=== PATIENT | male | born 1965 | race Caucasian/White ===

== ENCOUNTER → 2017-10-09 | Day surgery (SDC) | payer OTHER ==
[2017-10-08 11:31] VITALS: BMI 33.2
[~2017-10-09] MED LIST: Bacitracin Zinc Ointment 30 gm TUBE ONE; Dexamethasone 20 MG/5 ML VIAL ONE; Fentanyl 100 MCG/2 ML VIAL ONE; Glycopyrrolate 0.2 MG/ML 5 ML SYRINGE ONE; Lidocaine 1% PF 5 ML VIAL ONE; Lidocaine 1% w/Epinephrine 1:100K 30 ML VIAL ONE; Midazolam HCl 2 mg/2 ml Vial ONE; Ondansetron HCl/PF 4 MG/2 ML Vial ONE; Oxymetazoline HCl 0.05% ( 15 ML ) ONE; PROPOFOL 200 MG/20 ML VIAL ONE
--- NOTE | 2017-10-10 02:54 | OP ---
PREOPERATIVE DIAGNOSES: Profound septal deformity, hypertrophic inferior turbinates. POSTOPERATIVE DIAGNOSES: Profound septal deformity, hypertrophic inferior turbinates. PROCEDURE PERFORMED: 1. Septoplasty. 2. Bilateral nasal endoscopy with submucosal resection of inferior turbinates. PROCEDURE IN DETAIL: After consent was obtained, the patient was identified, brought to the operatin g room, and placed on the operating room table in the supine position. Consent was obtained, notifyi ng the patient of the possibility of additional infections, bleeding, brain injury, and eye/orbital i njury. The patient was placed on the operating room table, and general endotracheal anesthesia and intravenous access was obtained. The patient was then positioned, prepped and draped for endoscopic sinus surgery. Nasal preparation included trimming nasal vestibular hairs and spraying in topical Af rin. We then placed Afrin topical solution on nasal pledgets and strategically located them intranas ally. The perinasal mucosa was injected with 1% lidocaine with 1:100,000 epinephrine in the submucop erichondrial plane of the septum, lateral nasal wall, and anterior to the uncinate. The patient was then prepped and draped in a sterile fashion and positioned for endoscopic sinus surgery. After local anesthesia was infiltrated into the submucoperichondrial plane, a standard [place] incisi on was made with a #15 blade down to the level of the septal cartilage. The caudal elevator was used to elevate the mucoperichondrium from the underlying cartilage. We then proceeded beyond the bony c artilaginous junction and elevated the bony periosteum as well. Great attention was paid to the spur to prevent rent formation in the septal flap. A transcartilaginous incision was then made, while pre serving an adequate dorsal and caudal cartilaginous strut for tip support. The deformed cartilage wa s removed and disarticulated from the bony cartilaginous junction and maxillary crest. This was plac ed in saline and would later be crushed and returned to the mucoperichondrial envelope. We then elev ated the contralateral periosteum from the bony cartilaginous region and removed the deformed portion s of the bone and bony spurs. The cartilage was then crushed and placed back into the mucoperichondr ial envelope and the mucosa was re-approximated with a quilting stitch composed of rapidly absorbent gut suture. The Sean incision was also closed with interrupted gut suture. At the completion of the case, Cr[place] splints were placed and suture secured to the caudal septum. With the 0-degree endoscope, the patient underwent systematic nasal endoscopy. There were no suspici ous internasal masses or lesions identified. We then focused our attention to the osteomeatal comple x region under the middle turbinate. The inferior turbinates were visualized under endoscopic visualization and outfractured with the elev ator. The inferolateral edge of the inferior turbinate was then cauterized along its length with the suction cautery without difficulty. The inferior turbinates were visualized with a 0-degree endoscope and outfractured with a Lars eleva tor. The inferior medial aspect was cauterized with the electrocautery. Hemostasis was obtained. A fter adequate airway was established, we turned our attention to the contralateral side and used a si milar procedure. Again, a [place] elevator was used to outfracture inferior turbinates under endoscopi c visualization. With a suction cautery, the free inferior medial aspect was cauterized under direct visualization along the length of the inferior turbinate. At this point, we then turned our attention to the contralateral side and proceeded with endoscopic s inus surgery. At the completion of the case, [place] keel splints were placed in the ethmoid cavities after the ethmoi dectomy. There were no complications. The patient tolerated the procedure well and was discharged t o the recovery room in stable condition prior to return to the [facility]. Prescriptions for pain medication and antibiotics were provided. The patient received intramuscular Depo-Medrol during the case. FINDINGS: The patient had a profound anterior septal deformity towards the right with a large spur o n the left that extended along the .
--- NOTE | 2017-10-10 13:04 | EKG ---
Test Reason : PREOP Blood Pressure : / mmHG Vent. Rate : 069 BPM Atrial Rate : 069 BPM P-R Int : 152 ms QRS Dur : 094 ms QT Int : 400 ms P-R-T Axes : 035 037 026 degrees QTc Int : 428 ms Normal sinus rhythm Normal ECG No previous ECGs available Confirmed by BARRY CHI ([id number]) on 10/10/2017 1:04:36 PM Referred By: ELIESER Confirmed By:BARRY CHI
== END ==
LOC: SDC 13:34
PROVIDERS: ATTEND Specialist
PROC: 095L8ZZ Destruction of Nasal Turbinate, Via Natural or Artificial Opening Endoscopic (ICD-10-PCS; principal; 2017-10-09)
PROC: 09CM0ZZ Extirpation of Matter from Nasal Septum, Open Approach (ICD-10-PCS; principal; 2017-10-09)
DX: J34.2 Deviated nasal septum (principal); J34.3 Hypertrophy of nasal turbinates; E11.9 Type 2 diabetes mellitus without complications; E78.5 Hyperlipidemia, unspecified; I10 Essential (primary) hypertension; E55.9 Vitamin D deficiency, unspecified; Z88.5 Allergy status to narcotic agent; Z88.8 Allergy status to other drugs, medicaments and biological substances; Z79.82 Long term (current) use of aspirin; Z79.899 Other long term (current) drug therapy
CPT/HCPCS: 93005; 93010; J1100; J2001; J2250; J2405; J2704; J3010

== ENCOUNTER 2021-02-14 18:00 | Outpatient (CLI) | payer OTHER | END 2021-02-14 18:01 | disposition home or self-care (01) | LOC: SLEEPLAB 18:00 | PROVIDERS: ATTEND Family Medicine | DX: G47.33 Obstructive sleep apnea (adult) (pediatric) (principal); R53.83 Other fatigue; F41.9 Anxiety disorder, unspecified; F32.9 Major depressive disorder, single episode, unspecified; G47.00 Insomnia, unspecified; E11.9 Type 2 diabetes mellitus without complications; E66.9 Obesity, unspecified; Z68.35 Body mass index [BMI] 35.0-35.9, adult | CPT/HCPCS: 95806 ==

== ENCOUNTER 2023-06-13 09:05 | Outpatient (CLI) | payer OTHER | END 2023-06-13 09:06 | disposition home or self-care (01) | LOC: ULT 09:05 | PROVIDERS: ATTEND Physician Assistant Medical | DX: I85.00 Esophageal varices without bleeding (principal); K74.60 Unspecified cirrhosis of liver; K72.90 Hepatic failure, unspecified without coma; D64.9 Anemia, unspecified; G25.81 Restless legs syndrome; J90 Pleural effusion, not elsewhere classified; R16.2 Hepatomegaly with splenomegaly, not elsewhere classified | CPT/HCPCS: 76705 ==

== ENCOUNTER 2023-06-20 08:56 | Outpatient (CLI) | payer OTHER | END 2023-06-20 08:57 | disposition home or self-care (01) | LOC: BICCT 08:56 | PROVIDERS: ATTEND Family Medicine | DX: K74.60 Unspecified cirrhosis of liver (principal); R18.8 Other ascites; K76.6 Portal hypertension | CPT/HCPCS: 74177 ==

== ENCOUNTER 2023-10-14 10:42 | Outpatient (CLI) | payer OTHER | END 2023-10-14 10:43 | disposition home or self-care (01) | LOC: BICCT 10:42 | PROVIDERS: ATTEND Physician Assistant Medical | DX: K74.60 Unspecified cirrhosis of liver (principal); R74.8 Abnormal levels of other serum enzymes; K76.6 Portal hypertension; R16.1 Splenomegaly, not elsewhere classified | CPT/HCPCS: 74177; 82565 ==

== ENCOUNTER 2024-12-21 08:30 | Day surgery (SDC) | payer OTHER ==
[2024-12-21] MEDS ORDERED: Lidocaine 1% PF 5 ML VIAL ONE (08:33)
[2024-12-21] MEDS ORDERED: Sodium Bicarbonate 2.5 MEQ/5 ML SDV ONE (08:33)
[2024-12-21 08:59] LABS: #Basophils 0.05 10x3/uL (0.0-0.2); #Eosinophils 0.13 10x3/uL (0.0-0.7); #Monocytes 0.75 10x3/uL (0.11-0.59); #Neutrophils 5.17 10x3/uL (1.40-6.50); %Basophils 0.7 % (0.0-1.0); %Eosinophils 1.9 % (0.0-10.0); %Lymphocytes 11.9 % (21.0-51.0); %Monocytes 10.8 % (0.0-10.0); %Neutrophils 74.3 % (42.0-75.0); Hematocrit 33.9 % (42.0-52.0); Hemoglobin 11.4 g/dL (14.0-18.0); Mean Corpuscular Hemoglobin 30.6 pg (27.0-31.0); Mean Corpuscular Volume 91.1 fL (78.0-98.0); Platelet Count 111 10x3/uL (130-400); Red Blood Cell (RBC) Count 3.72 mill/uL (4.70-6.10); White Blood Cell (WBC) Count 6.96 10x3/uL (4.8-10.8)
[2024-12-21 09:01] LABS: INR-International Normal Ratio 1.3; PTT 43.0 sec (22.9-36.1); Prothrombin Time 16.1 sec (12.0-14.7)
[2024-12-21 09:54] LABS: Burr Cells SLIGHT = 2-5 cells HPF (0-1); Platelet Adequacy Comment Platelets Decreased; Polychromasia SLIGHT = 2-3 cells HPF (0-2); Schistocytes SLIGHT = 2-5 cells HPF (0-1)
[2024-12-21 14:03] LABS: RBC Count-Automated (BF) 637 /cu.mm; WBC/Nucleated-Auto (BF) 324 /cu.mm
[2024-12-21 14:16] LABS: Fluid, Amylase 19 U/L (Not Available); Fluid, LDH 68 U/L (Not Available); Fluid, Triglycerides 26 mg/dL (Not Available)
[2024-12-21 15:13] LABS: BF Segmented Neutrophils 9 %; Cell Count Non Hematic 91 %
== END 2024-12-21 10:45 | disposition home or self-care (01) ==
LOC: ULT 08:30
PROVIDERS: ATTEND Radiology Vascular & Interventional Radiology
PROC: 0W9G3ZZ Drainage of Peritoneal Cavity, Percutaneous Approach (ICD-10-PCS; principal; 2024-12-21)
DX: K72.90 Hepatic failure, unspecified without coma (principal); K74.60 Unspecified cirrhosis of liver; R18.8 Other ascites; K76.82 Hepatic encephalopathy; I10 Essential (primary) hypertension; E11.9 Type 2 diabetes mellitus without complications; Z90.49 Acquired absence of other specified parts of digestive tract; Z79.85 Long-term (current) use of injectable non-insulin antidiabetic drugs; Z79.899 Other long term (current) drug therapy
CPT/HCPCS: 36000; 36415; 49083; 82042; 82150; 83615; 84157; 84478; 85025; 85060; 85610; 85730; 87070; 87205; 88112; 88305; 89051; P9047

== ENCOUNTER 2025-01-05 11:12 | Day surgery (SDC) | payer OTHER ==
[2025-01-05] MEDS ORDERED: Lidocaine 1% PF 5 ML VIAL ONE (11:24)
[2025-01-05] MEDS ORDERED: Sodium Bicarbonate 2.5 MEQ/5 ML SDV ONE (11:24)
[2025-01-05 18:06] LABS: RBC Count-Automated (BF) 696 /cu.mm; WBC/Nucleated-Auto (BF) 277 /cu.mm
[2025-01-05 18:34] LABS: BF Segmented Neutrophils 7 %; Cell Count Non Hematic 71 %
== END 2025-01-05 13:25 | disposition home or self-care (01) ==
LOC: ULT 11:12
PROVIDERS: ATTEND Internal Medicine Gastroenterology
PROC: 0W9G3ZZ Drainage of Peritoneal Cavity, Percutaneous Approach (ICD-10-PCS; principal; 2025-01-05)
DX: K74.60 Unspecified cirrhosis of liver (principal); R18.8 Other ascites; K72.90 Hepatic failure, unspecified without coma; K76.82 Hepatic encephalopathy; I10 Essential (primary) hypertension; E11.9 Type 2 diabetes mellitus without complications; E78.5 Hyperlipidemia, unspecified; Z90.49 Acquired absence of other specified parts of digestive tract; Z79.85 Long-term (current) use of injectable non-insulin antidiabetic drugs; Z79.899 Other long term (current) drug therapy
CPT/HCPCS: 49083; 82042; 84157; 85060; 89051; P9047

== ENCOUNTER 2025-01-27 08:03 | Day surgery (SDC) | payer OTHER ==
[2025-01-27] MEDS ORDERED: Sodium Bicarbonate 2.5 MEQ/5 ML SDV ONE (08:28)
[2025-01-27] MEDS ORDERED: Lidocaine 1% w/Epinephrine 1:100K 20 ML VIAL ONE (08:28)
[2025-01-27] MEDS ORDERED: Lidocaine 1% PF 5 ML VIAL ONE (08:28)
[2025-01-27 09:02] LABS: #Basophils 0.05 10x3/uL (0.0-0.2); #Eosinophils 0.13 10x3/uL (0.0-0.7); #Monocytes 0.68 10x3/uL (0.11-0.59); #Neutrophils 4.55 10x3/uL (1.40-6.50); %Basophils 0.8 % (0.0-1.0); %Eosinophils 2.1 % (0.0-10.0); %Lymphocytes 10.9 % (21.0-51.0); %Monocytes 11.1 % (0.0-10.0); %Neutrophils 74.4 % (42.0-75.0); Hematocrit 34.7 % (42.0-52.0); Hemoglobin 11.4 g/dL (14.0-18.0); Mean Corpuscular Hemoglobin 29.7 pg (27.0-31.0); Mean Corpuscular Volume 90.4 fL (78.0-98.0); Platelet Count 85 10x3/uL (130-400); Red Blood Cell (RBC) Count 3.84 mill/uL (4.70-6.10); White Blood Cell (WBC) Count 6.12 10x3/uL (4.8-10.8)
[2025-01-27 09:05] LABS: INR-International Normal Ratio 1.3; PTT 40.6 sec (22.9-36.1); Prothrombin Time 15.9 sec (12.0-14.7)
[2025-01-27 09:40] LABS: Anisocytosis SLIGHT = 6-15 cells HPF (0-5); Burr Cells MODERATE= 6-15 cells HPF (0-1); Platelet Adequacy Comment Platelets Decreased; Polychromasia SLIGHT = 2-3 cells HPF (0-2)
[2025-01-27 11:26] LABS: RBC Count-Automated (BF) 1211 /cu.mm; WBC/Nucleated-Auto (BF) 305 /cu.mm
[2025-01-27 11:46] LABS: Fluid, Amylase 20 U/L (Not Available); Fluid, Triglycerides 51 mg/dL (Not Available)
[2025-01-27 12:06] LABS: BF Segmented Neutrophils 8 %; Cell Count Non Hematic 86 %
== END 2025-01-27 10:30 | disposition home or self-care (01) ==
LOC: ULT 08:03
PROVIDERS: ATTEND Internal Medicine Gastroenterology
PROC: 0W9G3ZZ Drainage of Peritoneal Cavity, Percutaneous Approach (ICD-10-PCS; principal; 2025-01-27)
DX: K72.90 Hepatic failure, unspecified without coma (principal); K74.60 Unspecified cirrhosis of liver; R18.8 Other ascites; K76.82 Hepatic encephalopathy; I10 Essential (primary) hypertension; E11.9 Type 2 diabetes mellitus without complications; E78.5 Hyperlipidemia, unspecified; Z90.49 Acquired absence of other specified parts of digestive tract; Z79.85 Long-term (current) use of injectable non-insulin antidiabetic drugs; Z79.899 Other long term (current) drug therapy
CPT/HCPCS: 36415; 49083; 82042; 82150; 83615; 84155; 84478; 85025; 85060; 85610; 85730; 87070; 87205; 89051; P9047

== ENCOUNTER 2025-01-28 07:28 | Day surgery (SDC) | payer OTHER ==
[2025-01-27 10:24] VITALS: BMI 31.1
[2025-01-28] MEDS ORDERED: PROPOFOL 40 ML ONE (09:45)
[2025-01-28] MEDS ORDERED: GLYCOPYRROLATE/PF 0.2 MG/ML VIAL ONE (09:46)
[2025-01-28] MEDS ORDERED: PROPOFOL 20 ML ONE (11:07)
== END 2025-01-28 12:15 | disposition home or self-care (01) ==
LOC: SDC 07:28
PROVIDERS: ATTEND Internal Medicine
PROC: 06L38CZ Occlusion of Esophageal Vein with Extraluminal Device, Via Natural or Artificial Opening Endoscopic (ICD-10-PCS; principal; 2025-01-28)
DX: Z12.11 Encounter for screening for malignant neoplasm of colon (principal); K63.5 Polyp of colon; I85.01 Esophageal varices with bleeding; K76.6 Portal hypertension; K31.89 Other diseases of stomach and duodenum; K72.90 Hepatic failure, unspecified without coma; K74.60 Unspecified cirrhosis of liver; K64.4 Residual hemorrhoidal skin tags; K64.8 Other hemorrhoids; I10 Essential (primary) hypertension; E11.9 Type 2 diabetes mellitus without complications; K21.9 Gastro-esophageal reflux disease without esophagitis
CPT/HCPCS: J2704; J3490

== ENCOUNTER 2025-02-18 10:20 | Day surgery (SDC) | payer OTHER ==
[2025-02-18] MEDS ORDERED: Lidocaine 1% PF 5 ML VIAL ONE (10:47)
[2025-02-18] MEDS ORDERED: Sodium Bicarbonate 2.5 MEQ/5 ML SDV ONE (10:48)
[2025-02-18 14:13] LABS: RBC Count-Automated (BF) 132 /cu.mm; WBC/Nucleated-Auto (BF) 28 /cu.mm
[2025-02-18 14:54] LABS: BF Segmented Neutrophils 5 %; Cell Count Non Hematic 66 %
== END 2025-02-18 12:45 | disposition home or self-care (01) ==
LOC: ULT 10:20
PROVIDERS: ATTEND Internal Medicine Gastroenterology
PROC: 0W9G30Z Drainage of Peritoneal Cavity with Drainage Device, Percutaneous Approach (ICD-10-PCS; principal; 2025-02-18)
DX: K72.90 Hepatic failure, unspecified without coma (principal); K76.82 Hepatic encephalopathy; R18.8 Other ascites; I10 Essential (primary) hypertension; E11.9 Type 2 diabetes mellitus without complications; E78.5 Hyperlipidemia, unspecified; Z79.899 Other long term (current) drug therapy; Z79.85 Long-term (current) use of injectable non-insulin antidiabetic drugs; Z88.5 Allergy status to narcotic agent
CPT/HCPCS: 36000; 49083; 82042; 84157; 85060; 89051; P9047

== ENCOUNTER 2025-02-25 11:00 | Day surgery (SDC) | payer OTHER ==
[2025-02-25] MEDS ORDERED: Lidocaine 1% PF 5 ML VIAL ONE (11:02)
[2025-02-25] MEDS ORDERED: Sodium Bicarbonate 2.5 MEQ/5 ML SDV ONE (11:03)
[2025-02-25 12:57] LABS: RBC Count-Automated (BF) 753 /cu.mm; WBC/Nucleated-Auto (BF) 151 /cu.mm
[2025-02-25 14:11] LABS: BF Segmented Neutrophils 2 %; Cell Count Non Hematic 93 %
== END 2025-02-25 12:45 | disposition home or self-care (01) ==
LOC: ULT 11:00
PROVIDERS: ATTEND Internal Medicine Gastroenterology
PROC: 0W9G3ZZ Drainage of Peritoneal Cavity, Percutaneous Approach (ICD-10-PCS; principal; 2025-02-25)
DX: K74.60 Unspecified cirrhosis of liver (principal); R18.8 Other ascites; K76.82 Hepatic encephalopathy; E11.9 Type 2 diabetes mellitus without complications; I10 Essential (primary) hypertension; E78.5 Hyperlipidemia, unspecified; F17.200 Nicotine dependence, unspecified, uncomplicated; Z79.899 Other long term (current) drug therapy; Z79.85 Long-term (current) use of injectable non-insulin antidiabetic drugs; Z88.5 Allergy status to narcotic agent
CPT/HCPCS: 49083; 82042; 84157; 85060; 89051; P9047

== ENCOUNTER 2025-02-28 16:21 | Emergency (ER) | payer OTHER ==
[2025-02-28 18:14] LABS: #Basophils 0.09 10x3/uL (0.0-0.2); #Eosinophils 0.16 10x3/uL (0.0-0.7); #Monocytes 0.64 10x3/uL (0.11-0.59); #Neutrophils 6.34 10x3/uL (1.40-6.50); %Basophils 1.1 % (0.0-1.0); %Eosinophils 2.0 % (0.0-10.0); %Lymphocytes 8.5 % (21.0-51.0); %Monocytes 8.0 % (0.0-10.0); %Neutrophils 79.6 % (42.0-75.0); Hematocrit 34.1 % (42.0-52.0); Hemoglobin 11.3 g/dL (14.0-18.0); Mean Corpuscular Hemoglobin 29.4 pg (27.0-31.0); Mean Corpuscular Volume 88.8 fL (78.0-98.0); Platelet Count 93 10x3/uL (130-400); Red Blood Cell (RBC) Count 3.84 mill/uL (4.70-6.10); White Blood Cell (WBC) Count 7.97 10x3/uL (4.8-10.8)
[2025-02-28 18:26] LABS: ALT (SGPT) 19 U/L (Less than 45); AST (SGOT) 31 U/L (11-34); Albumin 3.3 g/dL (3.1-4.5); Alkaline Phosphatase 138 U/L (40-110); Anion Gap 14 mmol/L (10-20); BUN (Urea Nitrogen) 23 mg/dL (8.4-25.7); Bilirubin, Total 4.1 mg/dL (0.3-1.2); Calc. Creatinine Clearance 0 mL/min (70-130); Calcium 9.4 mg/dL (7.8-10.44); Carbon Dioxide 22 mmol/L (22-29); Chloride 100 mmol/L (98-107); Globulin 2.9 g/dL (2.4-3.5); Glucose 168 mg/dL (70-105); Potassium 4.1 mmol/L (3.5-5.1); Sodium 132 mmol/L (136-145)
[2025-02-28 18:38] LABS: Anisocytosis SLIGHT = 6-15 cells (100X) (0-5/hpf); Macrocytosis SLIGHT = 6-15 cells (100X) (0-5/hpf); Microcytosis SLIGHT = 6-15 cells (100X) (0-5/hpf); Plasma Cells 0 % (0-0)
[2025-02-28 19:23] LABS: Bacteria/HPF None Seen HPF (None Seen); CAUTI Indications for Culture Alt mental st,lethar; Glucose, Urine (Dipstick) Normal (Negative); Leukocyte Negative Leu/uL (Negative); Protein, Urine (Dipstick) Negative (Neg-Trace); RBC/HPF 0-3 HPF (0-3); Specific Gravity, Urine 1.009 (1.002-1.036); WBC/HPF 0-3 HPF (0-3)
[2025-02-28 19:28] LABS: Urine Culture Reflex No No
== END 2025-02-28 20:16 | disposition home or self-care (01) ==
LOC: ERS 16:21
DX: K74.60 Unspecified cirrhosis of liver (principal); R18.8 Other ascites; J90 Pleural effusion, not elsewhere classified; E11.9 Type 2 diabetes mellitus without complications; I10 Essential (primary) hypertension; Z79.899 Other long term (current) drug therapy
CPT/HCPCS: 36415; 74176; 80053; 81001; 85025

== ENCOUNTER → 2025-03-04 | Day surgery (SDC) | payer OTHER ==
[~2025-03-04] MED LIST changes: -Bacitracin Zinc Ointment 30 gm TUBE ONE; -Dexamethasone 20 MG/5 ML VIAL ONE; -Fentanyl 100 MCG/2 ML VIAL ONE; -Glycopyrrolate 0.2 MG/ML 5 ML SYRINGE ONE; -Lidocaine 1% w/Epinephrine 1:100K 30 ML VIAL ONE; -Midazolam HCl 2 mg/2 ml Vial ONE; -Ondansetron HCl/PF 4 MG/2 ML Vial ONE; -Oxymetazoline HCl 0.05% ( 15 ML ) ONE; -PROPOFOL 200 MG/20 ML VIAL ONE; +Sodium Bicarbonate 2.5 MEQ/5 ML SDV ONE
[2025-03-04 10:59] LABS: INR-International Normal Ratio 1.2; Prothrombin Time 15.3 sec (12.0-14.7)
[2025-03-04 11:00] LABS: PTT 40.4 sec (22.9-36.1)
[2025-03-04 13:27] VITALS: BP 123/59
[2025-03-04] MEDS: Albumin 25% 25 GM (100 mL) BOT IVPB SCH (13:28)
[2025-03-04 14:02] LABS: RBC Count-Automated (BF) 103 /cu.mm; WBC/Nucleated-Auto (BF) 47 /cu.mm
[2025-03-04 14:23] LABS: BF Segmented Neutrophils 9 %; Cell Count Non Hematic 64 %
== END ==
LOC: ULT 10:22
PROVIDERS: ATTEND Internal Medicine Gastroenterology
PROC: 0W9G3ZZ Drainage of Peritoneal Cavity, Percutaneous Approach (ICD-10-PCS; principal; 2025-03-04)
DX: K72.90 Hepatic failure, unspecified without coma (principal); K74.60 Unspecified cirrhosis of liver; R18.8 Other ascites; K76.82 Hepatic encephalopathy; I10 Essential (primary) hypertension; E11.9 Type 2 diabetes mellitus without complications; E78.5 Hyperlipidemia, unspecified; Z90.49 Acquired absence of other specified parts of digestive tract; Z79.01 Long term (current) use of anticoagulants; Z79.85 Long-term (current) use of injectable non-insulin antidiabetic drugs; Z79.899 Other long term (current) drug therapy
CPT/HCPCS: 36415; 49083; 82042; 84157; 85060; 85610; 85730; 89051; C1729; P9047

== ENCOUNTER → 2025-03-18 | Day surgery (SDC) | payer OTHER ==
[~2025-03-18] MED LIST changes: -Sodium Bicarbonate 2.5 MEQ/5 ML SDV ONE
[2025-03-18] MEDS: Albumin 25% 25 GM (100 mL) BOT IVPB SCH (11:30)
[2025-03-18 13:45] VITALS: BP 128/65
[2025-03-19 08:12] LABS: RBC Count-Automated (BF) 959 /cu.mm; WBC/Nucleated-Auto (BF) 113 /cu.mm
[2025-03-19 11:00] LABS: BF Segmented Neutrophils 7 %; Cell Count Non Hematic 78 %
== END ==
LOC: ULT 10:34
PROVIDERS: ATTEND Internal Medicine Gastroenterology
PROC: 0W9G3ZZ Drainage of Peritoneal Cavity, Percutaneous Approach (ICD-10-PCS; principal; 2025-03-18)
DX: K74.60 Unspecified cirrhosis of liver (principal); R18.8 Other ascites
CPT/HCPCS: 49083; 82042; 84157; 85060; 89051; P9047

== ENCOUNTER 2025-03-23 08:09 | Day surgery (SDC) | payer OTHER ==
[2025-03-23] MEDS ORDERED: Lidocaine 1% PF 5 ML VIAL ONE (08:34)
[2025-03-23] MEDS ORDERED: Sodium Bicarbonate 2.5 MEQ/5 ML SDV ONE (08:34)
[2025-03-23 11:14] LABS: RBC Count-Automated (BF) 639 /cu.mm; WBC/Nucleated-Auto (BF) 874 /cu.mm
[2025-03-23 11:43] LABS: BF Segmented Neutrophils 59 %; Cell Count Non Hematic 35 %
== END 2025-03-23 10:15 | disposition home or self-care (01) ==
LOC: ULT 08:09
PROVIDERS: ATTEND Internal Medicine Gastroenterology
PROC: 0W9G30Z Drainage of Peritoneal Cavity with Drainage Device, Percutaneous Approach (ICD-10-PCS; principal; 2025-03-23)
DX: K76.82 Hepatic encephalopathy (principal); K72.90 Hepatic failure, unspecified without coma; K74.60 Unspecified cirrhosis of liver; R18.8 Other ascites; I10 Essential (primary) hypertension; E11.9 Type 2 diabetes mellitus without complications; Z90.49 Acquired absence of other specified parts of digestive tract; E78.5 Hyperlipidemia, unspecified; Z79.4 Long term (current) use of insulin; Z79.899 Other long term (current) drug therapy
CPT/HCPCS: 36000; 49083; 82042; 84157; 85060; 89051; P9047

== ENCOUNTER 2025-04-01 10:44 | Day surgery (SDC) | payer OTHER ==
[2025-04-01] MEDS ORDERED: Lidocaine 1% PF 5 ML VIAL ONE (10:49)
[2025-04-01] MEDS ORDERED: Sodium Bicarbonate 2.5 MEQ/5 ML SDV ONE (10:50)
[2025-04-01 13:59] LABS: RBC Count-Automated (BF) 476 /cu.mm; WBC/Nucleated-Auto (BF) 36 /cu.mm
[2025-04-01 14:33] LABS: BF Segmented Neutrophils 23 %; Cell Count Non Hematic 69 %
== END 2025-04-01 12:25 | disposition home or self-care (01) ==
LOC: ULT 10:44
PROVIDERS: ATTEND Internal Medicine Gastroenterology
PROC: 0W9G30Z Drainage of Peritoneal Cavity with Drainage Device, Percutaneous Approach (ICD-10-PCS; principal; 2025-04-01)
DX: K72.90 Hepatic failure, unspecified without coma (principal); K76.82 Hepatic encephalopathy; K74.60 Unspecified cirrhosis of liver; R18.8 Other ascites; I10 Essential (primary) hypertension; E11.9 Type 2 diabetes mellitus without complications; Z90.49 Acquired absence of other specified parts of digestive tract; Z79.4 Long term (current) use of insulin; Z79.899 Other long term (current) drug therapy; Z79.85 Long-term (current) use of injectable non-insulin antidiabetic drugs; Z88.5 Allergy status to narcotic agent
CPT/HCPCS: 49083; 82042; 84155; 85060; 89051; P9047

== ENCOUNTER 2025-04-08 06:39 | Day surgery (SDC) | payer OTHER ==
[2025-04-07 11:22] VITALS: BMI 33.3
[2025-04-08] MEDS ORDERED: PROPOFOL 0 ML ONE (07:55)
[2025-04-08] MEDS ORDERED: PROPOFOL 200 MG/20 ML VIAL ONE (08:43)
[2025-04-08] MEDS ORDERED: PROPOFOL 40 ML ONE (09:00)
[2025-04-08] MEDS ORDERED: PROPOFOL 20 ML ONE (09:10)
== END 2025-04-08 10:10 | disposition home or self-care (01) ==
LOC: SDC 06:39
PROVIDERS: ATTEND Internal Medicine
PROC: 0DBK8ZZ Excision of Ascending Colon, Via Natural or Artificial Opening Endoscopic (ICD-10-PCS; principal; 2025-04-08)
PROC: 0DJ08ZZ Inspection of Upper Intestinal Tract, Via Natural or Artificial Opening Endoscopic (ICD-10-PCS; principal; 2025-04-08)
DX: Z12.11 Encounter for screening for malignant neoplasm of colon (principal); K76.6 Portal hypertension; K31.89 Other diseases of stomach and duodenum; K64.8 Other hemorrhoids; K64.4 Residual hemorrhoidal skin tags; K72.90 Hepatic failure, unspecified without coma; I85.00 Esophageal varices without bleeding; R18.8 Other ascites; K63.5 Polyp of colon; K74.60 Unspecified cirrhosis of liver; K21.9 Gastro-esophageal reflux disease without esophagitis; E11.9 Type 2 diabetes mellitus without complications; Z90.49 Acquired absence of other specified parts of digestive tract; Z88.5 Allergy status to narcotic agent; Z90.89 Acquired absence of other organs; Z86.0101 Personal history of adenomatous and serrated colon polyps
CPT/HCPCS: 88305; J2704

== ENCOUNTER 2025-04-14 10:21 | Day surgery (SDC) | payer OTHER ==
[2025-04-14] MEDS ORDERED: Lidocaine 1% PF 5 ML VIAL ONE (10:42)
[2025-04-14] MEDS ORDERED: Sodium Bicarbonate 2.5 MEQ/5 ML SDV ONE (10:42)
[2025-04-14 11:59] LABS: #Basophils 0.06 10x3/uL (0.0-0.2); #Eosinophils 0.09 10x3/uL (0.0-0.7); #Monocytes 0.66 10x3/uL (0.11-0.59); #Neutrophils 4.75 10x3/uL (1.40-6.50); %Basophils 1.0 % (0.0-1.0); %Eosinophils 1.5 % (0.0-10.0); %Lymphocytes 9.2 % (21.0-51.0); %Monocytes 10.7 % (0.0-10.0); %Neutrophils 77.0 % (42.0-75.0); Hematocrit 32.8 % (42.0-52.0); Hemoglobin 10.9 g/dL (14.0-18.0); Mean Corpuscular Hemoglobin 29.4 pg (27.0-31.0); Mean Corpuscular Volume 88.4 fL (78.0-98.0); Platelet Count 105 10x3/uL (130-400); Red Blood Cell (RBC) Count 3.71 mill/uL (4.70-6.10); White Blood Cell (WBC) Count 6.17 10x3/uL (4.8-10.8)
[2025-04-14 12:04] LABS: INR-International Normal Ratio 1.2; Prothrombin Time 15.5 sec (12.0-14.7)
[2025-04-14 12:26] LABS: RBC Count-Automated (BF) 638 /cu.mm; WBC/Nucleated-Auto (BF) 27 /cu.mm
[2025-04-14 12:34] LABS: Anisocytosis SLIGHT = 6-15 cells HPF (0-5); Burr Cells SLIGHT = 2-5 cells HPF (0-1); Platelet Adequacy Comment Platelets Decreased; Poikilocytosis SLIGHT = 6-15 cells HPF (0-5)
[2025-04-14 12:57] LABS: BF Segmented Neutrophils 7 %; Cell Count Non Hematic 56 %
== END 2025-04-14 12:02 | disposition home or self-care (01) ==
LOC: ULT 10:21
PROVIDERS: ATTEND Internal Medicine Gastroenterology
DX: K72.90 Hepatic failure, unspecified without coma (principal); K74.60 Unspecified cirrhosis of liver; R18.8 Other ascites; K76.82 Hepatic encephalopathy; I10 Essential (primary) hypertension; E11.9 Type 2 diabetes mellitus without complications; Z90.49 Acquired absence of other specified parts of digestive tract; Z79.85 Long-term (current) use of injectable non-insulin antidiabetic drugs; Z79.899 Other long term (current) drug therapy
CPT/HCPCS: 49083; 82042; 84157; 85025; 85060; 85610; 89051; P9047